=== PATIENT | female | born 1975 | race Caucasian/White ===

== ENCOUNTER 2019-06-26 22:00 | Emergency (ER) | payer BC ==
--- OUTSIDE RECORDS SUMMARY | 2019-06-26 22:10 | XMS REPORT | Continuity of Care Document ---
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 [phone] Medicine Problems Description No Information Available Social History Type Date Description Comments Sex Unknown Tobacco Use Start: Unknown Never Smoked Cigarettes ETOH Use Currently consumes 7-10 drinks per week alcohol Recreational Drug Use Denies Drug Use Exercise Type/Frequency Exercises regularly Allergies, Adverse Reactions, Alerts Active Allergies Reaction Severity Comments Date Pork 06/03/2019 Medications Active Medications SIG Qnty Indications Ordering Provider Date 1 by mouth every Unknown Tablets day Immunizations Description No Information Available Vital Signs Date Vital Result Comment 06/04/2019 8:08am Height 63 inches 5'3" Weight 129.00 lb Heart Rate 72 /min BP Systolic 91 mmHg BP Diastolic 60 mmHg Body Temperature 98.4 F O2 % BldC Oximetry 98 % BMI (Body Mass Index) 22.8 kg/m2 Results Test Acquired Date Facility Test Result H/L Range Note Vitamin B12 And 06/04/2019 [facility] Vitamin B12 <pending> Folate Serum [address] [place] [address] [phone] Folic Acid (Folate) <pending> Laboratory test 06/04/2019 [facility] Vitamin D Total <pending> finding [address] [place] [address] [phone] Ferritin <pending> Laboratory test finding 06/04/2019 [facility] Selenium <pending > [address] [place] [address] [phone] Procedures Description No Information Available Medical Devices Description No Information Available Encounters Description No Information Available Assessments Date Code Description Provider 06/04/2019 R53.83 Other fatigue Catherine Sawant NP 06/04/2019 R14.0 Abdominal distension (gaseous) Catherine Sawant NP 06/04/2019 K59.00 Constipation, unspecified Catherine Sawant NP 06/04/2019 N95.9 Unspecified menopausal and perimenopausal Catherine Sawant NP disorder 06/04/2019 F32.9 Major depressive disorder, single episode, Catherine Sawant NP unspecified Plan of Treatment Future Appointment(s):08/08/2019 9:00 am - Catherine Sawant NP at [facility]07/30/2019 11:20 am - Yousif Espitia MD at [facility]06/04/2019 - Catherine Sawant, NPR53.83 Other fatigueFollow up:follow up in Jul - 45 minutes. Labs to be done at [facility] [place] [facility] [place] Please join our Portal - thisis important for uploading labs and communication. Recommend Elimination diet following the AIP diet (autoimmune paleo)- see handout. No gluten unless antibodies are negative. Focus on nutrient dense eating. No dairy for 3-4 weeks - do not recommend strict AIP - at least 200 mcgs of selenium The type of B vitamins you take is important. Be sure to go for the activated forms of folate, B6,and B12: L-5- MTHF Folate: Methylfolate B6: Bvyvlevlc-0-Dtkkwzvvb (P5P) B12: MethylcobalamineRecommendations:Fatigue is multi-factorial food sensitivities can play a role. An elimination diet is a validated approach to try to pin point food sensitivities. Increase healthy fats in the diet with cold pressed extra virgin olive oil, flax seed, hemp oil, fish oil (wild caught EPA/DHA). Nuts, seeds, avocado. Stress can play a large role in fatigue. Daily stress relaxation techniques. Sleep: sleeping 8 hours a day. Exercise: 30-60 minutes daily of exercise. Keeping your blood sugar stable removing high glycemic foods. Adrenal fatigue (HPA [place] dysregulation) - Lifestyle changes can make a difference. 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 Sleep is very important as is diet and exercise. Consider stress reduction techniques. Screening Tests: It is important to be up to date on your screening tests for your age - you are due for your Pap What is AIP? The Paleo Autoimmune Protocol (AIP) is a way of eating to heal the gut wall, restore gut pramod and in doing so reduce the chronic inflammatory response of the immune system that results in the destruction of tissue in autoimmune diseases. The main focus of the AIP is to heal the gut wall, restore digestive function, resolve microbial imbalances, restore nutrient deficiencies andsupport the body??s own pathways of detoxification. To do this, foods that commonly trigger an immune response are eliminated from the diet, for a period of time until symptoms have gone into remission. If there are any particular foods that you are allergic or sensitive to, even though they??re on the foods to include list, then they need to be omitted for the time being as well. There is a focus on particularly nutrient dense foods like bone broths, fermented veggies, organ meats, oily fish and oysters and a big emphasis on having a large amount of rainbow colored veggies ( sometimes starting with cooked ones only if your digestion is struggling). So rather than solely focusing on the diagnosis and treating the symptomatic organ ?? like the thyroid for example ?? we need to put a huge emphasis on healing the gut. Of course you may still need some pharmaceutical support to get the affected organ or system functioning properly again, preventing further tissue damage and providing relief for what can be some really severe symptoms What can you eat on the AIP diet? All animal proteins (excluding eggs) All vegetables (excluding nightshades) Fruits in moderation Healthy fats (avocado, olive oil, coconut oil, animal fats, etc.) Bone broth, organ meats Grain-free baking flours (cassava, tigernut, tapioca, coconut, etc.) What should you avoid ? All grains (wheat, oats, rice, corn, etc.) All dairy (all dairy of all types) All legumes (all beans such as lentils, black beans, chickpeas, and vegetables like green beans as well as peanuts) Nightshade vegetables and spices (tomatoes , potatoes, eggplant, all peppers, red spices) All nuts and seeds Seed based spices (mustard, cumin, sesame, etc.) Eggs Soy Thickeners, gums, and food additives Poor quality seed oils (sunflower oil, canola oil, soybean oil, etc.) Foods that can negatively impact immune function: Lectins: Lectins are carbohydrate-binding proteins that are present in all foods but can be difficult to digest and increase gut barrier damage. Toxic lectins are found in legumes and grains. Soaking, sprouting, and fermenting decrease lectin content. Phytic Acid: phytic acid is a component of grains, seeds, and legumes that limits the activity of digestive enzymes. This can damage the gut barrier and contribute to dysbiosis. Soaking, sprouting, and fermenting decrease phytic content. Gluten: gluten is a component of many grain products such as wheat, barley and rye. Exposure to gluten can activate zonulin in the intestines and contribute to intestinal permeability. Lactose and Casein: certain components of milk can contribute to intestinal permeability, especially if they have gone through traditional pasteurization and homogenization. The negative effects of the resulting protein changes can be decreased, as in the case of grassfed milk from cows. Nightshades: These plants contain an alkaloid that can be detrimental to the intestinal barrier. Nightshades include tomatoes, peppers, and eggplants. Great Resources: [facility] [employer] [facility] - free 10 week online program - HIGHLY recommend www.[employer] they have an AIP selectionRecommended Reading: Please read this book it is a great resource for women! Dr. Fang Goldstein book - The Brain Body Diet and Hormone Cure Recommended Book for thyroid: Dr. Lenora Gaytan. Why Do I Still Have Thyroid Symptoms? when My Lab Tests Are Normal: a Revolutionary Breakthrough in Understanding Cristian's Disease and Hypothyroidism Dr. Tiffanie Hernández: Thyroid Adrenal Revolution Cesilia Burroughs - "Thyroid Pharmacist" (she has several books and a cookbook) Cookbooks : I am not recommending a Keto diet - however these cookbooks are about eating nutrient dense foods. Dr. Brayan Thurman - What the heck should I eat Dr. Galeano - Cooking for Life Dr. Alexey Underwood??s - Ketotarian Dr. Oates - Fat for Fuel or KetoFast COOKBOOKS - These come with editor sound books if you wish Podcasts: Broken Brain SeriesThe [employer] Radio Focus should be on NUTRIENT DENSE foods.R14.0 Abdominal distension (gaseous)Recommendations:If the digestive system is working properly, we have maximum absorption of nutrients, resulting in energy and vitality. When the digestive system is not working well , we have bloating, systemic inflammation, skin rashes, food sensitivities, constipation, abdominal discomfort, fatigue, and many other diverse non- specific symptoms such as headaches, poor mood, joint pain, muscle fatigue, etc. The digestive tract may become compromised with a diet high in refined sugar, a diet low in fiber, as well asantibiotics, medications, stress, parasitic infections, bacterial infections, nutrient deficiencies,and alcohol use. These mechanisms may promote inflammation of the intestinal tract and lead to increased intestinal permeability. What is SIBO? SIBO occurs when the bacteria that normally live in the colon move backwards, up into the small intestine (where they are not supposed to be in high numbers) and an overgrowth develops. It can also occur when the small amount of bacteria normally present in the small intestines overgrows. When the bacteria are in the small intestine , THEY start digesting and fermenting your food (instead of YOU digesting and absorbing your food), creating gas, bloating, and malabsorption for the host. What are the symptoms? Extreme bloating (many people say they look 6months ) Constipation, diarrhea, or both Abdominal pain, tenderness, or discomfort Burping and/or farting Nausea Acid reflux Gastroparesis (like food is just sitting in stomach, won??t go down-feels like a brick in the stomach) Food sensitivities or intolerances Leaky gut Anxiety & depression (very common for SIBO ?? the LPS in the bacterial cell wall (endotoxins) increase inflammatory cytokines, which affect mood) Brain fog How do you test for SIBO? Unfortunately, insurance doesn't tend to cover this test we offer in the office. We use the [employer] and it will test for the two types of SIBO - Methane and Hydrogen. The cost is $179. We recommend you send the test in with your payment and can ask the company for a bill that you can submit to your insurance. You can pay the testin full or they will let you split the payment into 4 payments. Please contact the company if you have any questions and review the handout we have provided for you.K59.00 Constipation, unspecifiedRecommendations:See above. Other constipation tips:N95.9 Unspecified menopausal and perimenopausal disorderRecommendations:Perimenopause can start at age 35 and go to age 51, the average age of menopause is 51. Women can experience perimenopause for many years. Autoimmune conditions can affect the menstrual cycle as wellas food sensitivities. Recommend an autoimmune paleo diet as we discussed as well as supportive supplements. Other recommendations reduce and eliminate alcohol. Diet and lifestyle to metabolize estrogen Reduce alcohol Maintain healthy gut bacteria Maintain healthy body weight Avoid endocrine disruptors Reduce inflammatory foods Eat find out lots of phytonutrients (plants!) Highly recommend reading the book: Period Repair manual by Carline Duarte NDF32.9 Major depressive disorder, single episode, unspecifiedRecommendations:Please call one of the therapists on the list I provided. Engaging any mindfulness practice daily will also help heal your HPA axis dysregulation. guided meditation, consider [facility] aniyah STRESS FREE. Consider MBSR (mindfulness-Based Stress Reduction) 8 week program this year. offered in [facility] every few months. Consider FREE MBSR online program: [email or web address]/ Do ??4-7-8? ? breathing: Breathe in through nose for 4 counts Hold your breath for 7 counts Exhale through mouth for 8 counts This combination of count ratio slows heart rate and relaxes the sympathetic nervous system. Adopt yoga practice- Available reviews of a wide range of yoga practices suggest they can reduce the impact of exaggerated stress responses and may be helpful for both anxiety and depression. In this respect, yoga functions like other self-soothing techniques , such as meditation, relaxation, exercise, or even socializing with friends. By reducing perceived stress and anxiety, yoga appears to modulate stress response systems. This, in turn, decreases physiological arousal ?? for example , reducing the heart rate, lowering blood pressure, and easing respiration. There is also evidence that yoga practices help increase heart rate variability , an indicator of the body's ability to respond to stress more flexibly. Functional Status Description No Information Available Mental Status Description No Information Available Referrals Description No Information Available
--- NOTE | 2019-06-26 22:48 | ED ---
- HPI Summary HPI Summary: This patient is a 44 year old female presenting to [facility] with a chief complaint of lower abdominal pain and vaginal bleeding since yesterday. She states she is 10 weeks . She reports bleeding to be very light yesterday but has increased in severity today. She is . She is concerned for demise. She states her last period was 04/16/19. She states the more heavy bleeding started 4 hours ago. She describes the abdominal pain as cramping. She states she does not take home medications or any surgeries. - History of Current Complaint Chief Complaint: EDOBProblems Stated Complaint: 10 WKS Time Seen by Provider: 06/26/19 22:43 Hx Obtained From: Patient Chief Complaint: Vaginal Bleeding Onset/Duration: Started Days Ago Pain Intensity: 4 Location of Pain: Suprapubic - Allergies/Home Medications Allergies/Adverse Reactions: Allergies Allergy/AdvReac Type Severity Reaction Status Date / Time No Known Allergies Allergy Verified 06/26/19 22:03 Home Medications: Home Medications NK [No Home Medications Reported] 06/26/19 [History Confirmed 06/26/19] PMH/Surg Hx/FS Hx/Imm Hx Endocrine/Hematology History: Denies: Hx Diabetes GI History: Denies: Hx Irritable Bowel - Immunization History Date of Influenza Vaccine: none Infectious Disease History: No Infectious Disease History: Denies: Traveled Outside the [place] in Last 30 Days - Family History Known Family History: Positive: Diabetes - Social History Alcohol Use: Rare Substance Use Type: Reports: None Smoking Status (MU): Former Smoker Review of Systems Positive: Abdominal Pain Positive: other - Vaginal bleeding All Other Systems Reviewed And Are Negative: Yes Physical Exam - Summary Physical Exam Summary: General: Well-developed, Well-nourished FEMALE. No acute distress. HEENT: Normocephalic, Atraumatic. Eyes: Conjuctiva normal, PERRL. Oropharynx: Clear, mucous membranes moist, (-) exudates. Neck: Soft, FROM, (-) lymphadenopathy, (-) thyromegaly, (-) JVD. Cardiovascular: Normal sinus rhythm, (-) murmur. Lungs: Clear to auscultation bilaterally (-) wheezes, (-) rales, (-) rhonchi. Abdomen: Soft, mild lower abdominal tenderness to palpation, non-distended, (-) organomegaly, normal bowel sounds. Back: (-) CVA tenderness Extremities: No edema. Skin: Warm, dry, (-) rash. Neuro: Alert and oriented x3, no focal deficits. Psychiatric: Mood normal, affect normal. - Physical Exam Triage Information Reviewed: Yes Vital Signs On Initial Exam: Temp Pulse Resp BP Pulse Ox 98.7 F 96 20 110/71 100 06/26/19 22:01 06/26/19 22:01 06/26/19 22:01 06/26/19 22:01 06/26/19 22:01 Vital Signs Reviewed: Yes Procedures - Sedation Patient Received Moderate/Deep Sedation with Procedure: No Diagnostics - Vital Signs Vital Signs Temp Pulse Resp BP Pulse Ox 06/26/19 22:01 98.7 F 96 20 110/71 100 - Laboratory Result Diagrams: 06/26/19 23:11 06/26/19 23:11 Lab Statement: Any lab studies that have been ordered have been reviewed, and results considered in the medical decision making process. - Ultrasound No standard instances Ultrasound Interpretation Completed By: Radiologist Summary of Ultrasound Findings: Transvaginal: A gestational sac is seen within the endometrial cavity. It is in the lower different segment. The mean sac diameter is 25 mm. A pole is not seen. This is consistent with blighted ovum. ED Provider has reviewed this report. Course/Dx - Course Course Of Treatment: 44 year old female presents wiht increased vaginal bleeding and lower abdominal cramping. she states she is at 10 weeks gestation. started with mild vaginal bleeding yeseterday which increased today. no fevers or vomiting. abd soft, non tender. ultrasound demonstrated no pole. patient discharged home with incomplete miscarriage. follow up with program writer , follow up sooner for any worsening symptoms - Diagnoses Provider Diagnoses: Incomplete miscarriage Discharge ED - Sign-Out/Discharge Documenting (check all that apply): Patient Departure - Discharge - Discharge Plan Condition: Stable Disposition: HOME Patient Education Materials: Miscarriage (ED) Referrals: Angela Salas MD [Primary Care Provider] - Additional Instructions: Return to ED with new or worsening symptoms. - Billing Disposition and Condition Condition: STABLE Disposition: Home - Attestation Statements Document Initiated by Scribe: Yes Documenting Scribe: Ken King Provider For Whom Scribe is Documenting (Include Credential): Marisol Soriano MD Scribe Attestation: I, Ken King, scribed for Marisol Soriano MD on 06/27/19 at 0135. Scribe Documentation Reviewed: Yes Provider Attestation: The documentation as recorded by the scribe, Ken King accurately reflects the service I personally performed and the decisions made by me, Marisol Soriano MD Status of Scribe Document: Viewed
[2019-06-26 23:12] LABS: Urine Appearance Cloudy; Urine Bilirubin Negative (Negative); Urine Blood 3+ (Negative); Urine Color Yellow; Urine Glucose Negative (Negative); Urine Ketones Trace (Negative); Urine Nitrite Negative (Negative); Urine Protein 1+(30 mg/dL) (Negative); Urine Specific Gravity 1.023 (1.010-1.030); Urine Urobilinogen Negative (Negative)
[2019-06-26 23:17] LABS: Urine Bacteria Absent (Absent); Urine Red Blood Cell 3+(>10/hpf) (Absent); Urine White Blood Cell Absent (Absent)
[2019-06-26 23:25] LABS: ABS Basophils 0.1 10^3/ul (0-0.2); ABS Eosinophils 0.4 10^3/ul (0-0.6); ABS Lymphocytes 2.1 10^3/ul (1.0-4.8); ABS Monocytes 0.5 10^3/ul (0-0.8); ABS Neutrophils 5.8 10^3/ul (1.5-7.7); Eosinophil % 4.5 %; Hematocrit 35 % (35-47); Hemoglobin 12.2 g/dL (12.0-16.0); Lymphocyte % 23.7 %; Mean Corpuscular HGB Conc 35 g/dL (31-36); Mean Corpuscular Hemoglobin 31 pg (27-31); Mean Corpuscular Volume 88 fL (80-97); Mean Platelet Volume 6.7 fL (7.4-10.4); Platelet Count 232 10^3/uL (150-450); Red Blood Count 3.99 10^6 /uL (3.70-4.87); Red Cell Distribution Width 13 % (10-15)
[2019-06-26 23:30] LABS: INR 1.09 (0.82-1.09)
[2019-06-26 23:35] LABS: Albumin 4.3 g/dL (3.2-5.2); Albumin/Globulin Ratio 1.7 (1-3); BUN/Creatinine Ratio 21.5 (8-20); Calcium 9.4 mg/dL (8.6-10.3); EGFR African American 119.8 (>60); Globulin 2.5 g/dL (2-4); Potassium 3.4 mmol/L (3.5-5.0); Total Bilirubin 0.6 mg/dL (0.2-1.0); Total Protein 6.8 g/dL (6.4-8.9)
[2019-06-26] MEDS ORDERED: Acetaminophen ADULT LIQ* 650 MG/20.3 ML UDC PO ONE (23:52)
[2019-06-27] MEDS ORDERED: NS 0.9% 1000 ML** 1,000 ML IV ONE (00:19)
[2019-06-27] MEDS ORDERED: Ondansetron INJ* 2 MG/ML VIAL IV ONE (00:31)
[2019-06-27] MEDS ORDERED: Ketorolac INJ* 30 MG/ML 1 ML VIAL IV PUSH ONE (00:31)
[2019-06-27 02:21] VITALS: BP 102/68
== END 2019-06-27 01:38 | disposition home or self-care (01) ==
LOC: ED 22:00
DX: O03.4 Incomplete spontaneous abortion without complication (principal); Z87.891 Personal history of nicotine dependence
CPT/HCPCS: 36415; 76817; 80053; 81003; 81015; 84702; 85025; 85610; 96361; 96374; 96375; 99283; A9270-GY; J1885; J2405